=== PATIENT | male | born 1980 | race Caucasian/White ===

== ENCOUNTER → 2017-01-10 | Outpatient (CLI) | payer MEDICARE, MEDICAID ==
[2017-01-10 08:54] LABS: BASOPHIL % 0.5 %; EOSINOPHIL # 0.1 K/uL (0.0-0.5); EOSINOPHIL % 3.2 %; HEMATOCRIT 46.9 % (37.0-53.0); HEMOGLOBIN 15.6 g/dL (12.0-17.0); IMMATURE GRANULOCYTE % 0.2 %; LYMPHOCYTE # 1.4 K/uL (0.8-4.0); LYMPHOCYTE % 30.4 %; MCHC 33.3 gm/dL (32.0-36.5); MCV 90.2 fl (83.0-98.0); MONOCYTE # 0.5 K/uL (0.0-1.0); MONOCYTE % 10.4 %; MPV 10.3 fl (9.4-12.4); NEUTROPHIL # (ANC) 2.5 K/uL (1.4-9.0); NEUTROPHIL % 55.3 %; NRBC % 0 /100WBC (0-0.00); PLATELET COUNT 237 K/uL (150-450); RDW-CV 12.5 % (11.9-14.6); WBC 4.4 K/uL (4.0-11.0)
[2017-01-10 09:17] LABS: ALBUMIN 3.8 gm/dL (3.5-5.0); ALK PHOS 141 IU/L (33-138); ALT 68 IU/L (12-78); ANION GAP 9.4 (10.0-19.0); AST 37 IU/L (10-40); BLOOD UREA NITROGEN 12 mg/dL (6-24); CALCIUM 8.5 mg/dL (8.5-10.5); CHLORIDE 105 mMol/L (96-110); CO2 32 mMol/L (22-32); CREATININE 0.7 mg/dL (0.6-1.3); ESTIMATED GFR (MDRD EQUATION) > 60; POTASSIUM 4.4 mMol/L (3.7-5.1); SODIUM 142 mMol/L (135-145); TOTAL BILIRUBIN 0.3 mg/dL (0.0-1.5); TOTAL PROTEIN 6.9 g/dL (6.0-8.4)
== END | disposition disaster alternative care site (69) ==
LOC: LBETH 01-09 07:21
PROVIDERS: Physician Assistant
DX: Z79.899 Other long term (current) drug therapy (principal); G40.109 Localization-related (focal) (partial) symptomatic epilepsy and epileptic syndromes with simple partial seizures, not intractable, without status epilepticus